=== PATIENT | male | born 1995 | race Asian ===

== ENCOUNTER → 2016-06-20 | Outpatient (CLI) | payer OTHER ==
--- NOTE | 2016-06-20 10:15 | DIAGNOSTIC IMAGING REPORT ---
ULTRASOUND OF THE THYROID GLAND CLINICAL HISTORY: Thyroid cancer. COMPARISON STUDY: No priors. TECHNIQUE: Real-time, grayscale, and color flow sonography of the thyroid gland is performed utilizing a high-frequency linear transducer. Images are reviewed in the transverse and longitudinal planes. FINDINGS: Right lobe: The right lobe of the thyroid gland is surgically absent. No recurrent or residual soft tissue lesion is identified in the operative bed. Left lobe: The left lobe of the thyroid gland is normal in size and homogeneous in echotexture, measuring 5.9 x 1.4 x 1.9 cm. Isthmus: The thyroid isthmus is normal in appearance and measures 0.2 cm in AP diameter. IMPRESSION: 1. The right lobe of the thyroid gland is surgically absent. There is no evidence of recurrent/residual lesion in the operative bed. 2. The left lobe and isthmus are normal in appearance. Electronically signed by: Nathan Esqueda M.D. 06/20/2016 10:13 AM Dictated Date/Time: 06/20/2016 10:12 AM
== END | disposition home or self-care (01) ==
LOC: C.ULTR 09:55
PROVIDERS: ATTEND Family Medicine
DX: C73 Malignant neoplasm of thyroid gland (principal); E89.0 Postprocedural hypothyroidism